=== PATIENT | male | born 1960 | race Caucasian/White ===

== ENCOUNTER 2019-10-19 08:12 | Inpatient (IN) | payer OTHER, MEDICARE, SELFPAY ==
[2019-10-08 08:52] VITALS: BMI 34.9
[2019-10-19] VITALS (20 sets, daily range): BP systolic 96–116; BP diastolic 55–83; PULSE 54–125; RESP 10–18; TEMP 35.8–37; O2SAT 85–98; BMI 34.3
--- NOTE | 2019-10-19 | DI.RAD.S_ITS ---
PROCEDURE: XR LUMBAR SPINE 2-3V INDICATIONS: L5-S1 LAMINECTOMY TECHNIQUE: 2 views of the lumbar spine were acquired. COMPARISON: [facility] [place], CR, XR LUMBAR SPINE 2 OR 3 VIEWS, 09/10/2019, 14:25. [facility] Outside Film, MR, MR LUMBAR SPINE WITHOUT CONTRAST, 01/17/2019, 15:46. FINDINGS: Bones: 5 [id number] vertebrae are present. There is normal bony alignment maintained by transverse pedicle screws and vertical fixation rods spanning the L5-S1 level, with interbody disc cage prosthesis centered just to the right of midline at L5-S1.. No vertebral body compression fractures. No suspicious bony lesions. Soft tissues: Overlying bowel gas pattern is normal. No suspicious soft tissue calcifications. IMPRESSION: Normal alignment after operative fixation at L5-S1. Dictated by: Saman Mederos M.D. on 10/19/2019 at 13:22 Approved by: Saman Mederos M.D. on 10/19/2019 at 13:24
[2019-10-19] MEDS: LACTATED RINGERS 1,000 ML 42 ML IV ×2 (08:34→11:36)
--- NOTE | 2019-10-19 10:04 | PM.PREOP ---
Pre-operative Note Interval Note History & Physical reviewed/Exam performed by Physician: Yes Changes to H&P: No
--- NOTE | 2019-10-19 10:10 | PM.OP.1 ---
Operative Date/Time/Diagnoses Date of procedure: 10/19/19 Time of procedure: 13:11 Pre-op diagnosis: Lumbar stenosis with radiculopathy History of lumbar laminectomy Post-op diagnosis: same Procedure & Clinicians Procedure: L5-S1 TLIF (post/post interbody fusion) with cage L5-S1 revision right-sided laminectomy L5, S1 screws Iliac crest bone graft aspirate Use of microscope Placement of epidural catheter Same procedure as scheduled: Yes Indications: [age] year old male with intractable pain from stenosis. He had failed conservative management and requested operative intervention. Risks and benefits of surgery were discussed and appropriate consents were obtained. Surgeon: Errol Gaffney Drywall Carrier: Karina Pastor Anesthesia Type: General Operative Notes Findings: none Closure Type: primary Specimen(s): none sent Prosthetic devices, grafts, tissues, transplants, or devices: NuVasive MAS Reline screws Globus Rise cage Applied: catheter Estimated Blood Loss (mL): 50 Procedure in detail: The patient was brought to the operating room and intubated on the table. A time-out was performed. They were then rolled over to the well-padded Rex table in the prone position. Preoperative antibiotics were given. The back was prepped and draped in the standard sterile fashion. Using fluoroscopy, a 4 cm longitudinal incision was made to the right of the midline. We used Bovie to come down to and split the lumbodorsal fascia. Using fluoroscopy and monitoring, we then percutaneously placed Jamshidi needles down the pedicles of L5 and S1 on the right side. These were changed out to guidewires and then we tapped and then placed the NuVasive MAS Reline screw shanks. We then opened up the retractors and used Bovie to clear up the posterolateral gutter as well as medially along the lamina to the spinous processes. A bur was used to decorticate the transverse processes. We brought in the microscope. Using a combination of bur and Kerrison rongeurs, a revision right-sided laminectomy was performed. The lamina itself was intact but underneath this there was no ligamentum, only scar tissue from his previous surgery. Most likely he had just had a ligamentum resection with his diskectomy in the past. We worked up cephalad until we could find a clear edge past the scar tissue where there was actually ligamentum and then began working caudally slowly and carefully peeling the scar tissue away from the dura and freeing up the exiting and traversing nerve roots. The S1 nerve root was completely scarred into the disc level and had to be carefully peeled up to be able to free the dura medially. We had to perform a complete facetectomy to free up the exiting L5 root. This laminectomy was separate and distinct from a TLIF approach as this was a revision surgery and we had to do with scar tissue and much more time and complexity to free up the nerve through this. We carefully cleaned up the remainder of the foramen until we could easily retract the exiting root as well as clearing medially below the dura and expose the disc space. We kept clearing back scar until we could mobilize the dura medially. The disc was prepped with bipolar and then an annulotomy was performed. We performed a diskectomy using a combination of paddles, mya, pituitaries, and curettes. We distracted the disc using a paddle and locked the retractor in an open position. We then filled the disc space with Osteocel bone graft. We then placed the globus Rise cage under fluoroscopy and then filled this in with more bone graft. The distraction on the retractor was released to compress down. This completed the posterior interbody fusion portion of the TLIF at L5-S1. We then placed the screw heads, rom, and locked down the set screws. The wound was copiously irrigated. A small stab incision was made over the PSIS. We used a Jamshidi needle to aspirate several mL of bone marrow from the pelvis. This was mixed with the remaining Osteocel and combined with all of the locally harvested bone graft and placed in the posterolateral gutter for the posterior fusion of the TLIF at L5-S1. An epidural catheter was then placed in the spinal canal by carefully depressing the dura and advancing it 6 cm cephalad under the remaining lamina without resistance. The muscle fascia was closed. The catheter was then injected with a solution containing 4 mL of 0.5% Marcaine, 1 mg Stadol, 4 mg Duramorph, and 100 mcg of fentanyl. This was injected without resistance and the catheter was pulled. We then went to the opposite side. Again using fluoroscopy, a 3 cm incision was made and Bovie was used to come down to split the fascia. Using neural monitoring and fluoroscopy, Jamshidi needles were advanced down the pedicles of L5 and S1 on the left side. These were switched over guidewires, tapped, and screws placed. We then placed a rom and locked the set screws on this side. The wound was irrigated. The fascia was closed. Vancomycin powder was placed in the wounds. The superficial and skin were closed. A sterile dressing was placed. The patient was then rolled over extubated and brought to recovery room without complications. Complications: none Post-operative Condition: stable Disposition: PACU Plan for aftercare: Inpatient. Up with PT
[2019-10-19] MEDS: CEFAZOLIN 2 GM/100 ML FROZ.PIGGY IV ×2 (10:50→18:12)
[2019-10-19] MEDS: VANCOMYCIN 1,000 MG VIAL 1000 MG TOP (11:18)
[2019-10-19] MEDS: SODIUM CHLORIDE 0.9% 1,000 ML, GENTAMICIN 80 MG IRR (11:19)
[2019-10-19] MEDS: THROMBIN (RECOMBINANT) 5,000 UNIT VIAL 5000 UNIT TOP (11:19)
[2019-10-19] MEDS: BUPIVACAINE 0.5% (PF) 4 ML, MORPHINE-PF 4 MG, BUTORPHANOL 1 MG, fentaNYL 100 MCG INJ (11:20)
--- NOTE | 2019-10-19 11:27 | SUR.OPER ---
Prone on spine table, head in foam head support, padded chest and pelvic supports, gel pad at knees, lower legs supported by pillows; nipples, genitalia and toes free of pressure, arms secured on foam padded arm boards at <90 degrees abduction. Tape over blanket at thigh secured to table.
[2019-10-19] MEDS: HYDROMORPHONE 2 MG INJ IV ×4 (13:35→13:50)
[2019-10-19] MEDS: hydrOXYzine 50 MG/ML INJ IM (13:35)
[2019-10-19] MEDS: LORazepam 2 MG/ML INJ 0.25 MG IV (13:52)
[2019-10-19] MEDS: LACTATED RINGERS 1,000 ML 125 ML IV ×2 (14:59→23:23)
--- NOTE | 2019-10-19 15:37 | PC.NURSE ---
Received from pacu at 1430 s/p back surgery. Dressing checked and dressing is c/d/i. Bp 115 sys, hr 86. Cont pulse ox placed and sats are 93% on 2L, brief check on ra and sats were down to 88%. Feels a little itchy, pain is in control and he rates it at a zero right now. Spouse at bedside. Report given to Lacey SIERRA
[2019-10-19] MEDS: diphenhydrAMINE 25 MG TABLET PO (17:28)
[2019-10-19] MEDS: HYDROCODONE/ACET 5/325 TABLET 2 TAB PO ×2 (18:24→23:22)
[2019-10-19] MEDS: SENNOSIDES 8.6 MG TABLET 17.2 MG PO (20:59)
[2019-10-19] MEDS: DOCUSATE 100 MG CAPSULE PO (20:59)
[2019-10-19] MEDS: CELECOXIB 200 MG CAPSULE PO (20:59)
[2019-10-19] MEDS: METOPROLOL ER 50 MG TABLET PO (20:59)
[2019-10-19] MEDS: LOSARTAN 50 MG TABLET PO (21:00)
[2019-10-19] MEDS: GABAPENTIN 300 MG CAPSULE PO (21:00)
[2019-10-19] MEDS: ALBUTEROL HFA 60 PUFF/8 GM INH INH (22:23)
[2019-10-19] MEDS: FLUTICASONE/SALMETEROL 500/50 60 PUFF DISKUS INH (22:25)
[2019-10-20] VITALS (9 sets, daily range): BP systolic 91–119; BP diastolic 57–65; PULSE 72–103; RESP 16–20; TEMP 36.3–37.4; O2SAT 94–98
[2019-10-20] MEDS: hydrOXYzine pamoate 25 MG CAPSULE PO (01:21)
[2019-10-20] MEDS: CEFAZOLIN 2 GM/100 ML FROZ.PIGGY IV (03:25)
[2019-10-20] MEDS: HYDROCODONE/ACET 5/325 TABLET 2 TAB PO ×5 (04:31→20:39)
--- NOTE | 2019-10-20 05:21 | PC.NURSE ---
Patient with low urine output, 200 dark turner urine on shift. Encouraged patient to drink more PO fluids. Patient reports that he had stopped consuming liquids early yesterday and has not consumed much fluids on this shift. Will continue with IV fluids and pass to day shift.
[2019-10-20 05:45] LABS: Hematocrit 39.3 % (41-53); Hemoglobin 13.4 g/dL (13.5-17.5)
--- NOTE | 2019-10-20 07:28 | PM.PNPO.1 ---
Subjective Subjective Date Patient Seen: 10/20/19 Time Patient Seen: 07:28 Interval history: He is doing well. Pain 5/10 across back. No leg pain. Exam Vital Signs (past 8 hours): - 10/20/19 04:20 Temperature 99.3 F Pulse Rate 89 Respiratory Rate 16 Blood Pressure 99/61 Pulse Oximetry 95 Oxygen Delivery Method Room Air Oxygen Flow Rate 0 Const Orientation: alert and oriented x3 Back/Spine/Pelvis Other: Mild drainage. 5/5 motor both lower extremities. Objective Labs Result Diagrams: 10/20/19 05:10 Labs: Laboratory Results - last 24 hr 10/20/19 05:10 Hgb 13.4 L Hct 39.3 L Assessment & Plan Post-op Postoperative Procedures: Procedures Operation Date: 10/19/19 10:15 Actual Procedures Side Surgeon p L5S1 laminectomy and instrumented fusion w/ bone graft Errol Gaffney MD He is doing well. Mobilize with physical therapy. Anticipate discharge home tomorrow. Quality VTE Deep Vein Thrombosis/Pulmonary Embolism Present on Admission: No
--- NOTE | 2019-10-20 08:10 | OT.IP.EVAL ---
Current Diagnoses Spinal stenosis, lumbar region with neurogenic claudication (10/19/19) Surgery Performed Operation Date: 10/19/19 10:15 Actual Procedures p L5S1 laminectomy and instrumented fusion w/ bone graft - Errol Gaffney MD Past Medical History (Last Updated 10/08/19 @ 09:15 by Alka Phelps, RN) Afib (Acute) Arthritis (Acute) Asthma (Acute) CAD (coronary artery disease) (Acute) Cardiomyopathy (Acute) Chronic systolic heart failure (Acute) HLD (hyperlipidemia) (Acute) HTN (hypertension) (Acute) Sciatica (Acute) Seasonal allergies (Acute) Surgical History (Last Updated 10/08/19 @ 09:15 by Alka Phelps RN) History of arthroscopy of both knees (Acute) Hx of laminectomy (Acute) Occupational Therapy Inpatient Evaluation/Re-Eval M1 PT/OT-IP Prior Functional Status Start: 10/20/19 09:20 Freq: NEEDED Status: Active Protocol: Document 10/20/19 09:20 CGR (Rec: 10/20/19 09:41 CGR [email or web address]) Medical Review Prior Functional Status Medical History Reviewed Yes Communication Pt is an effective verbal communicator. Mobility and Gait Pt was IND in all functional mobility prior to admit without AD. Activities of Daily Living and IADL's Pt was IND in all ADLs prior to admit. Prior Functional Level (Other details) Pt is retired and lives on a homestead with his . Social History Household Members spouse Living Arrangements House Number of Floors (Floors) One Floor Number of Stairs To Enter/Railing? 2 steps into the house from front without rail, and 1 step down into the garage. Home Environment Standard Height Toilet,Tub/ Shower Home Equipment Front Wheel Walker Employment Status Retired Additional Social History Comment Pt lives with his in a single story house on a homestead. Pt states he is expecting his to stay at home with him for a few days to a week after returning home . M2 OT-IP Current Condition Start: 10/20/19 09:20 Freq: Status: Active Protocol: Document 10/20/19 09:20 CGR (Rec: 10/20/19 09:41 CGR [email or web address]) Occupational Therapy Current Condition Current Condition Evaluation Date 10/20/19 Treatment Diagnosis L5-S1 TLIF revision with screws and bone graft. Diagnosis Onset Date 12/27/19 Post Operative Precautions Lumbar Precautions Log Roll,No Twisting,Limit Bending,Lifting Restriction of 10 lbs,Gait Belt above Incisional Area M3 OT- IP Subjective and Pain Start: 10/20/19 09:20 Freq: Status: Active Protocol: Document 10/20/19 09:20 CGR (Rec: 10/20/19 09:41 CGR [email or web address]) OT- Subjective Occupational Therapy Visit Type Type Initial Evaluation Visit Start Time 07:15 Visit Stop Time 08:10 Total Visit Minutes 55 Occupational Therapy Visit Comments Patient Comments I have a lot of responsibilities at home with all of the animals so I think my will stay home for a week or so. OT Pain Assessment Pain When Pain Assessed At Rest Pain Present Pain Present Pain Reported Location lower back Intensity 5 Scale Used Numeric (1 - 10) Management Techniques Modification of Treatment,Re- positioning M4 OT- IP ADL's Start: 10/20/19 09:20 Freq: Status: Active Protocol: Document 10/20/19 09:20 CGR (Rec: 10/20/19 09:41 CGR [email or web address]) OT RQZ-Lfgb-Fcdorog General Evaluation Self-Feeding Ability Independent Comments OT Self-Feeding Comments Pt left with breakfast tray at end of session. OT ADL-Grooming General Evaluation Grooming Ability Standby Assistance Areas Needing Assistance Face Washing Comments OT Grooming Comments standing at sink OT ADL-Oral Care General Eval Oral Care Ability Standby Assistance Areas of Assistance Brushing Teeth,Retrieving/Set- Up of Items Comments Oral Care Comments Standing at sink OT ADL-Dressing General Eval Lower Body Dressing Ability Standby Assistance Areas Needing Assistance Socks Assistive Devices Dressing Assistive Devices Warp Knitter,Sock Aid Comments OT Dressing Comments Educated on use of hip kit for LB dressing. Pt practiced with provided hip kit. Pt needed multiple attempts with the sock aid but was sucessful once foam piece applied to sock aid and then performed second foot without difficutly . OT ADL-Toileting General Evaluation Toileting Ability Independent Devices Toileting Assistive Devices Grab Bars OT ADL-Bathing Comments OT Bathing Comments Not performed in this session. M5 OT- IP IADL's Start: 10/20/19 09:20 Freq: Status: Active Protocol: Document 10/20/19 09:20 CGR (Rec: 10/20/19 09:41 CGR [email or web address]) OT-Instrumental Activities of Daily Living Deficits IADL Deficits Identified No Deficits Home Safety Awareness Awareness of Need for Assistance at Home Good Awareness Ability to Problem Solve Emergency Able to Problem Solve Situations Medication Management Medication Management No Deficits Identified Money Management Money Management No Deficits Identified Meal Preparation Meal Preparation No Deficits Identified, Caregiver Provides Assist Wax Molder Wax Molder Caregiver Provides Assist Driving Driving Caregiver Provides Assist M6 OT- IP Functional Cognition Start: 10/20/19 09:20 Freq: Status: Active Protocol: Document 10/20/19 09:20 CGR (Rec: 10/20/19 09:41 CGR [email or web address]) Cognitive Factors Limiting Selfcare Function Cognitive Ability Level of Alertness Alert Patient Orientation Name,Age,Birthday,Month,Date, Year,Day of Week,Place, Situation Attention Span Ability Capable of Focused Attention, Capable of Sustained Attention Ability to Follow Commands Able to Follow Multi-Step Commands Memory Description No Deficits Noted Safety Awareness No Deficits Noted Problem Solving Ability No deficits Noted OT- Vision and Hearing OT- Hearing Assessment OT- Hearing Assessment WFL OT- Vision Assessment Visual Acuity Glasses All The Time Visual Attentiveness WFL Occular Pursuits WFL Visual Convergence WFL Visual Aadm WFL Diplopia Absent Visual Spacial Neglect Not Applicable M7 OT- IP Mobility and Balance Start: 10/20/19 09:20 Freq: Status: Active Protocol: Document 10/20/19 09:20 CGR (Rec: 10/20/19 09:41 CGR [email or web address]) OT- Bed Mobility Assessment Rolling Type of Rolling Log Rolling Level of Assistance Minimal Assistance Supine to Sit Supine to Sit Assist Contact Guard Assistance Scooting Scooting to Edge of Bed Standby Assistance OT-Transfer Assessment Sit to and From Stand Sit to and from Stand Contact Guard Assistance Transfers Transfer Ability Contact Guard Assistance Technique Transfer Destination Bed,Chair,Toilet Transfer Technique Stand Step Pivot Devices Transfer Assistive Devices Gait Belt,Front Wheeled Walker OT- Gait Assessment Gait Gait Assistance Required: Contact Guard Assist Assistive Devices Assistive Device Gait Belt,Front Wheeled Walker Comments Gait Ability Comments For mobility around the room. OT- Balance Assessment Sitting Balance and Reactions Static Sitting Balance Ability Good Dynamic Sitting Balance Ability Fair M8 OT- IP Objective Assessments Start: 10/20/19 09:20 Freq: Status: Active Protocol: Document 10/20/19 09:20 CGR (Rec: 10/20/19 09:41 CGR [email or web address]) OT Gross Range of Motion Upper Extremity Range of Motion Assessment Within Functional Limits OT Strength Upper Extremity Strength Assessment Within Functional Limits OT- Coordination Assessment Upper Extremity Finger to Nose Test Within Functional Limits Finger Tapping Test Within Functional Limits OT-Muscle Tone Assessment Muscle Tone WNL Yes OT Sensation Assessment Edema Edema Absent M9 OT- IP Assessment and Plan Start: 10/20/19 09:20 Freq: Status: Active Protocol: Document 10/20/19 09:20 CGR (Rec: 10/20/19 09:41 CGR [email or web address]) OT Summary Assessment and Plan Potential Rehabilitation Potential Excellent Analytic Complexity at Evaluation Low Summary OT Impairments Pain,Balance,Functional Mobility,Dressing,Toileting, Bathing,Toilet Transfers, Shower Transfers Progress Towards Goals Progressing Toward Goals Assessment Summary Pt presents as a low complexity evaluation. Pt is progressing well s/p lumbar sx and will likely be ready for discharge home when cleared by MD. Pt educated on hip kit and provided with hip kit for home use. Pt states understanding of back precautions and need for home equipment. List of home equipment needs left with pt: toilet heightner with arm rests, shower seat, suction cup grab bars for use with tub . Goals Dressing Goal Independent Toileting Goal Independent Bathing Goal Independent Toilet Transfer Goal Independent Shower Transfer Goal Independent Days to Meet Goals 2 Frequency of Treatment Frequency Of Treatment Once a Day Treatment Plan OT Treatment Plan ADL Training,Functional Mobility,Patient/Family Education,Discharge Planning Other Treatment Recommendations and Next Shower and further LB DME Treatment Focus training. Discharge Recommendations OT Discharge Recommendations Home with Assistance Home Equipment Needs Toilet heightner with arm rests, shower seat, suction cup grab bars for use with tub
[2019-10-20] MEDS: DOCUSATE 100 MG CAPSULE PO ×2 (08:20→20:38)
[2019-10-20] MEDS: CELECOXIB 200 MG CAPSULE PO ×2 (08:20→20:38)
--- NOTE | 2019-10-20 08:55 | PT.IIE ---
Current Diagnoses Spinal stenosis, lumbar region with neurogenic claudication (10/19/19) Surgery Performed Operation Date: 10/19/19 10:15 Actual Procedures p L5S1 laminectomy and instrumented fusion w/ bone graft - Errol Gaffney MD Surgical History (Last Updated 10/08/19 @ 09:15 by Alka Phelps RN) History of arthroscopy of both knees (Acute) Hx of laminectomy (Acute) Medical History (Last Updated 10/08/19 @ 09:15 by Alka Phelps RN) Afib (Acute) Arthritis (Acute) Asthma (Acute) CAD (coronary artery disease) (Acute) Cardiomyopathy (Acute) Chronic systolic heart failure (Acute) HLD (hyperlipidemia) (Acute) HTN (hypertension) (Acute) Sciatica (Acute) Seasonal allergies (Acute) Physical Therapy Inpatient Evaluation/Re-Eval M1 PT/OT-IP Prior Functional Status Start: 10/20/19 09:20 Freq: NEEDED Status: Active Protocol: Document 10/20/19 09:20 CGR (Rec: 10/20/19 09:41 CGR [id number]) Medical Review Prior Functional Status Medical History Reviewed Yes Communication Pt is an effective verbal communicator. Mobility and Gait Pt was IND in all functional mobility prior to admit without AD. Activities of Daily Living and IADL's Pt was IND in all ADLs prior to admit. Prior Functional Level (Other details) Pt is retired and lives on a homestead with his . Social History Household Members spouse Living Arrangements House Number of Floors (Floors) One Floor Number of Stairs To Enter/Railing? 2 steps into the house from front without rail, and 1 step down into the garage. Home Environment Standard Height Toilet,Tub/ Shower Home Equipment Front Wheel Walker Employment Status Retired Additional Social History Comment Pt lives with his in a single story house on a homestead. Pt states he is expecting his to stay at home with him for a few days to a week after returning home . M1 PT/OT-IP Prior Functional Status Start: 10/20/19 12:46 Freq: NEEDED Status: Active Protocol: Document 10/20/19 08:55 AB (Rec: 10/20/19 12:57 AB [id number]) Medical Review Prior Functional Status Medical History Reviewed Yes Communication able to make needs known Mobility and Gait pt stated that he is independent with all mobilities and ambulation without AD Activities of Daily Living and IADL's per OT's note: Pt was IND in all ADLs prior to admit. Social History Household Members spouse Living Arrangements House Number of Floors (Floors) One Floor Number of Stairs To Enter/Railing? 2 steps with L rail ascending Home Environment Standard Height Toilet Home Equipment Straight Cane Employment Status Retired Additional Social History Comment pt stated that he has a walker but with not wheels but has skids on the front M2 PT-IP Current Condition Start: 10/20/19 12:46 Freq: NEEDED Status: Active Protocol: Document 10/20/19 08:55 AB (Rec: 10/20/19 12:57 AB [id number]) Physical Therapy Current Condition Current Condition Evaluation Date 10/20/19 Treatment Diagnosis L5S1 TLIF and lami revision; difficulty in walking Onset Date 10/19/19 Precautions Lumbar Precautions Log Roll,No Twisting,Limit Bending,Lifting Restriction of 10 lbs,Gait Belt above Incisional Area M3 PT-IP Subjective Start: 10/20/19 12:46 Freq: NEEDED Status: Active Protocol: Document 10/20/19 08:55 AB (Rec: 10/20/19 12:57 AB [id number]) Subjective Physical Therapy Visit Type Type Initial Evaluation Visit Start Time 08:55 Visit Stop Time 09:32 Total Visit Minutes 37 Number of DIGITAL SALES EXECUTIVE Visits 0 Physical Therapy Visit Comments Patient Comments pt agreeable to do PT Therapy Pain Assessment Pain When Pain Assessed At Rest Pain Present Pain Present Pain Reported Location lower back Intensity 5 Scale Used Numeric (1 - 10) Pain Management Techniques Re-positioning,Timing of Activity with Medications M4 PT-IP Mobility and Gait Start: 10/20/19 12:46 Freq: NEEDED Status: Active Protocol: Document 10/20/19 08:55 AB (Rec: 10/20/19 12:57 AB [id number]) PT-Bed Mobility Assessment Rolling Type of Rolling Log Rolling Supine to Sit Supine to Sit Standby Assistance,1 Person Assistance Sit to Supine Sit to Supine Standby Assistance,1 Person Assistance PT-Transfer Assessment Sit to and From Stand Sit to and from Stand Minimal Assistance,1 Person Assistance,Use of Upper Extremities Equipment Transfer Assistive Device Gait Belt,Front Wheeled Walker Orthotic/Prosthetic Devices or Brace: No Transfers Transfer Destination Chair Transfer Technique ambulated using FWW Transfer Ability Level of Assist Minimal Assistance,1 Person Assistance,Use of Upper Extremities Gait Assessment Gait Gait Assistance Required: Minimum Assistance Distance (Feet) 12 Able to Maintain Weight Bearing Status Yes During Gait Assistive Devices Assistive Device Straight Cane,Front Wheeled Walker Orthotic/Prosthetic Devices or Brace: No Gait Deviations General Gait Pattern Antalgic,Decreased Stride Length,Decreased Feet Clearance Factors Limiting Gait Function Factors Limiting Gait Function Decreased Activity Tolerance, Decreased Strength,Limited Range of Motion,Pain,Poor Balance,Poor Safety Awareness Comments Gait Comments ambulated in room using FWW requiring min A and cues ~ 12 ft. c/o low back feeling tired and weak during ambulation and has to sit down . Agreed to stay up on the chair after ambulation. positioned on chair. call light and table placed within reach. PT-Balance Assessment Sitting Balance and Reactions Static Sitting Balance Ability Good Dynamic Sitting Balance Ability Good Standing Balance and Reactions Static Standing Balance Ability Fair Dynamic Standing Balance Ability Fair Device Used FWW M5 PT-IP Objective Assessments Start: 10/20/19 12:46 Freq: NEEDED Status: Active Protocol: Document 10/20/19 08:55 AB (Rec: 10/20/19 12:57 AB [id number]) Orientation Orientation/Cognition Level of Alertness Alert Orientation Name,Age,Birthday,Date,Day of Week,Place,Situation Language Function Ability No Deficits Noted Safety Awareness Decreased Safety Awareness Memory Description Short Term Impaired Gross Range of Motion Lower Extremity ROM Assessment Within Functional Limits Strength Lower Extremity Strength Assessment Within Functional Limits Coordination Assessment Gross Coordination Gross Coordination WNL Sensation Assessment Sensation Gross Sensation WNL Muscle Tone Muscle Tone WNL Yes M6 PT-IP Treatment Start: 10/20/19 12:46 Freq: NEEDED Status: Active Protocol: Document 10/20/19 08:55 AB (Rec: 10/20/19 12:57 AB [id number]) Physical Therapy Treatment Education Education Provided Precautions,Weight Bearing Status,Post-Op Packet,Safety M7 PT-IP Assessment and Plan Start: 10/20/19 12:46 Freq: NEEDED Status: Active Protocol: Document 10/20/19 08:55 AB (Rec: 10/20/19 12:57 AB [id number]) PT Summary Assessment and Plan Potential Rehabilitation Potential Good Status of Condition at Evaluation Stable Summary Impairments Pain,ROM,Strength,Balance, Coordination,Sensation,Tone, Cognition,Bed Mobility, Transfers,Gait,Activity Tolerance Assessment Summary pt requires min A with transfers and ambulation and plans to go home with spouse to assist him. caregiver training will be conducted when approrpriate as well as stair climbing training. will continue to assess progress. Goals Bed Mobility Goal Independent Transfer Goal Independent,Front Wheeled Walker Gait Goal Independent,Front Wheel Walker Gait Distance 200 Other Goals up/down 2 steps L rail ascending SBA Days to Meet Goals 5 Frequency of Treatment Frequency Of Treatment Twice a Day Treatment Plan Physical Therapy Treatment Plan Bed Mobility Training,Transfer Training,Gait Training, Therapeutic Exercise,Balance Retraining,Post Op Education, Discharge Planning,Hot or Cold Pack,Neuromuscular Re-ed, Coordination Retraining,Manual Therapy Other Recommendations and Next Treatment ambulation, stair climbing, Focus caregiver training Recommendations To Nursing Amount of Assist Needed 1 Person Assist Discharge Recommendations PT Discharge Recommendations Home with Assistance
--- NOTE | 2019-10-20 11:06 | CM.DANOTE ---
DCP/Assessment: Reviewed chart. Patient is a 59yr old male admitted to [facility] for spine surgery which was completed on 10-19-[address] Gaffney. PCP is Dr. aSunders. Primary payor is 1)[employer] 2)Medicare. Met with patient explained CM/SW role. Patient alert and oriented resting in bed at time of visit. Patient hopes to d/c home within the next 24/48hrs. Patient has supportive spouse/Mary and reports that he has all needed DME. Patient plans to do outpatient therapy near his residence when Dr. Gaffney approves. No identified d/c planning needs at this time. P: Anticipate home when patient is medically stable. JENNIFER Combs Discharge Planning/Care Management CM Discharge Assessment Start: 10/20/19 11:02 Freq: Status: Active Protocol: Document 10/20/19 11:03 KJS (Rec: 10/20/19 11:06 KJS [id number]) Discharge Planning Assessment Assigned Code Enforcement Inspector JENNIFER Combs Contact Information Mray Ugalde (spouse) [phone] Advance Directives? No History Provided By Patient,Medical Record Prior Living Arrangements House Household Members spouse Type of transporation used prior to Drives own vehicle admit Independent with ADL's Yes Is patient alert and oriented? Yes Caregiver for Another No DME Already Rented / Owned FWW / Walker,Cane Barriers to Discharge No Discharge Plan Home Transportation Arrangement Family to provide transport Whiteboard Updated in Patient Room with Yes name and ext. # of Code Enforcement Inspector Review Status In Process Next Review Type Continued Stay Review Pre-Anesthesia Assessment Start: 10/08/19 08:52 Freq: Status: Complete Protocol: Document 10/08/19 08:52 CAB (Rec: 10/08/19 09:37 CAB [id number]) Pre-Anesthesia Assessment Patient Information Reviewed Via Phone Assessment Assessment Completed With Patient Diagnostic Results EKG Comment Outside EKG scanned to record, pt states labs completed, not available Primary Care Provider Taurus Saunders Medical Clearance Received Yes Specialist Seen Tennis Net Maker,Orthopedist Comment PCP clearance scanned to record Primary Language Serbian Machine Carton Marker Required No Height 185.42 cm Weight 120.202 kg Body Mass Index (BMI) 34.9 Hearing Ability Normal Visual Impairment No Limitations Visual Assist Glasses Dentition Type Teeth, Natural Present Barriers to Learning None Hx Anesthesia Reactions No Hx Family Anesthesia Reaction No Hx Malignant Hyperthermia No Hx Blood Transfusions No Anesthesia Review Requested No alcohol intake never Smoking Status Never smoker Substance Use Type does not use Pain Present Pain Reported Musculoskeletal Symptoms Abnormal Gait,Back Pain, Difficulty Walking,Muscle Cramps,Muscle Spasms,Muscle Weakness,Neck Pain,Numbness, Tingling History of Falling (Recent or History of No ) Patient is completely paralyzed or No completely immobile Prosthesis or Orthotic Device Cane Mental Status Oriented to own ability Comment Pt is active, works around 2 1 /2 acre property w/o issues Is patient on oxygen? No Does patient have MILLAN/SOB No: Hx of Asthma, CHF Hx Sleep Apnea No Currently Taking a Beta Hema Yes: Metoprolol Can You Climb a Flight of Stairs Without Yes SOB Hx Chest Pain No Hx SOB Yes Hx Syncope or Dizziness No Anti-Coagulant Therapy Yes: Xarelto-Advised to hold 10/15/19 per Cardiology Has a Tennis Net Maker Yes: Dr. Baptiste-visit 09/13/19 Cardiac Testing No Hx Pacemaker/ICD No Pacemaker Rep Required? No Cardiac Clearance Received Yes Comment Cardiac records scanned to chart Diet Type At Home Regular dysphagia No Urinary Catheter Present No Hx Urinary Self Catheterization No Diabetes No Hx Drug Resistant Organism No Presence of External or Internal Medical No Devices Have you traveled outside the [place] in the last 30 days? Marital Status Lives With spouse Prior Living Arrangements House Number of Floors (Floors) One Floor Support System Spouse Patient Discharge Plan Description Return Home Comment Pt advised 1-3 day length of stay per surgeon Feels Safe in Current Environment Yes Been Physically Hurt or Threatened By a No Person in Current Environment Do you have thoughts of harming yourself None or others? Are you currently considering suicide? No Do you have a plan to hurt yourself or No Plan others? Do You Have Any Spiritual Beliefs That No May Affect Your HC Choices? Do You Have Any Cultural Practices That No May Affect Your HC Choices? Comment Sikh Who Can We Speak to About Patient's Care Family, friends Identifying Code for Release of Patient Declines to issue Information Health Care Proxy/Next of Kin Rubia () Health Care Proxy Emergency Contact Name Rubia () Emergency Contact Advance Directives? No Power of Household Appliance Assembler No PAC Instructions Durable medical equipment, Medications to take/avoid, Nasal antibiotic,No ETOH/ petroleum product on skin DOS, NPO,Post-op transportation,Pre -surgical wash,Sensory aids, Sturdy shoes/comfortable clothes,Do not bring valuables and remove jewelry
--- NOTE | 2019-10-20 13:26 | PT.IPTN ---
Current Diagnoses Spinal stenosis, lumbar region with neurogenic claudication (10/19/19) Surgery Performed Operation Date: 10/19/19 10:15 Actual Procedures p L5S1 laminectomy and instrumented fusion w/ bone graft - Errol Gaffney MD Physical Therapy Treatment Note M2 PT-IP Current Condition Start: 10/20/19 12:46 Freq: NEEDED Status: Active Protocol: Document 10/20/19 08:55 AB (Rec: 10/20/19 12:57 AB [id number]) Physical Therapy Current Condition Current Condition Evaluation Date 10/20/19 Treatment Diagnosis L5S1 TLIF and lami revision; difficulty in walking Onset Date 10/19/19 Precautions Lumbar Precautions Log Roll,No Twisting,Limit Bending,Lifting Restriction of 10 lbs,Gait Belt above Incisional Area M3 PT-IP Subjective Start: 10/20/19 12:46 Freq: NEEDED Status: Active Protocol: Document 10/20/19 12:48 LJ (Rec: 10/20/19 13:26 LJ [email or web address]) Subjective Physical Therapy Visit Type Type Treatment Note Visit Start Time 12:48 Visit Stop Time 13:12 Total Visit Minutes 24 Number of DIALYSIS PATIENT CARE TECHNICIAN Visits 1 Physical Therapy Visit Comments Patient Comments Pt in bed willing to get up and walk in hallway Therapy Pain Assessment Pain When Pain Assessed At Rest Pain Present Pain Present Pain Reported M4 PT-IP Mobility and Gait Start: 10/20/19 12:46 Freq: NEEDED Status: Active Protocol: Document 10/20/19 12:48 LJ (Rec: 10/20/19 13:26 LJ [id number]) PT-Bed Mobility Assessment Rolling Type of Rolling Log Rolling Supine to Sit Supine to Sit Standby Assistance,1 Person Assistance Sit to Supine Sit to Supine Standby Assistance,1 Person Assistance Scooting Scooting to Edge of Bed Standby Assistance PT-Transfer Assessment Sit to and From Stand Sit to and from Stand Contact Guard Assistance,Use of Upper Extremities Equipment Transfer Assistive Device Gait Belt,Front Wheeled Walker Orthotic/Prosthetic Devices or Brace: No Transfers Transfer Destination Chair,Toilet Transfer Technique ambulated using FWW Transfer Ability Level of Assist Standby Assistance,Contact Guard Assistance,Use of Upper Extremities Comments Mobility Comments Pt SBA for all bed mobility and transfers. Exercising caution to avoid bending when sitting on toilet and chair Gait Assessment Gait Gait Assistance Required: Standby Assistance,Contact Guard Assist Distance (Feet) 400 Assistive Devices Assistive Device Front Wheeled Walker Orthotic/Prosthetic Devices or Brace: No Gait Deviations General Gait Pattern Decreased Stride Length, Decreased Feet Clearance Factors Limiting Gait Function Factors Limiting Gait Function Decreased Activity Tolerance, Decreased Strength,Limited Range of Motion,Pain,Poor Balance,Poor Safety Awareness Comments Gait Comments Pt ambulated in hallway from room to stairs x2 with normal pac and near normal gait mechanics being steady on lhis feet. No complaint of fatigue or pain with ambulation. Pt returned to room and sat on toilet to void. Stood using rail then ambulated to chair. Stand>sit into chair controlled and within precations. Stair Climbing Assessment Evaluation Level of Assist On Stairs Standby Assistance,Contact Guard Assistance Devices Stair Climbing Assistive Devices Front Wheel Walker Technique/Endurance Stair Climbing Direction Ascend and Descend Stair Climbing Technique Step to Step Number of Steps Climbed 1 Stair Climbing Set # Repetitions (reps) 2 Comments Stair Climbing Comments Pt reports he has one large step on which he can place a FWW to enter the house then will step over the threshold. He was careful and had no difficulty stepping up and down the step. M5 PT-IP Objective Assessments Start: 10/20/19 12:46 Freq: NEEDED Status: Active Protocol: Document 10/20/19 08:55 AB (Rec: 10/20/19 12:57 AB [id number]) Orientation Orientation/Cognition Level of Alertness Alert Orientation Name,Age,Birthday,Date,Day of Week,Place,Situation Language Function Ability No Deficits Noted Safety Awareness Decreased Safety Awareness Memory Description Short Term Impaired Gross Range of Motion Lower Extremity ROM Assessment Within Functional Limits Strength Lower Extremity Strength Assessment Within Functional Limits Coordination Assessment Gross Coordination Gross Coordination WNL Sensation Assessment Sensation Gross Sensation WNL Muscle Tone Muscle Tone WNL Yes M6 PT-IP Treatment Start: 10/20/19 12:46 Freq: NEEDED Status: Active Protocol: Document 10/20/19 12:48 ALDO (Rec: 10/20/19 13:26 LJ [id number]) Physical Therapy Treatment Education Education Provided Precautions,Weight Bearing Status,Post-Op Packet,Safety M7 PT-IP Assessment and Plan Start: 10/20/19 12:46 Freq: NEEDED Status: Active Protocol: Document 10/20/19 12:48 ALDO (Rec: 10/20/19 13:26 LJ [id number]) PT Summary Assessment and Plan Potential Rehabilitation Potential Good Status of Condition at Evaluation Stable Summary Impairments Pain,ROM,Strength,Balance, Coordination,Sensation,Tone, Cognition,Bed Mobility, Transfers,Gait,Activity Tolerance Assessment Summary Pt is CGA-SBA for all moblility and ambulation. His gait was near normal with near normal foot clearance and stride length. No antalgia at this point. Stair climbing was successful. Still need to discuss the type of walker he has at home and determine if it is appropriate for his use. Goals Bed Mobility Goal Independent Transfer Goal Independent,Front Wheeled Walker Gait Goal Independent,Front Wheel Walker Gait Distance 200 Other Goals up/down 2 steps L rail ascending SBA Days to Meet Goals 5 Frequency of Treatment Frequency Of Treatment Twice a Day Treatment Plan Physical Therapy Treatment Plan Bed Mobility Training,Transfer Training,Gait Training, Therapeutic Exercise,Balance Retraining,Post Op Education, Discharge Planning,Hot or Cold Pack,Neuromuscular Re-ed, Coordination Retraining,Manual Therapy Other Recommendations and Next Treatment ambulation, caregiver training Focus , FWW assessment Recommendations To Nursing Amount of Assist Needed 1 Person Assist Discharge Recommendations PT Discharge Recommendations Home with Assistance
[2019-10-20] MEDS: SENNOSIDES 8.6 MG TABLET 17.2 MG PO (20:39)
[2019-10-20] MEDS: LOSARTAN 50 MG TABLET PO (22:04)
[2019-10-20] MEDS: METOPROLOL ER 50 MG TABLET PO (22:04)
[2019-10-20] MEDS: FLUTICASONE/SALMETEROL 500/50 60 PUFF DISKUS INH (22:11)
[2019-10-21] MEDS: hydrOXYzine pamoate 25 MG CAPSULE PO (00:18)
[2019-10-21] MEDS: HYDROCODONE/ACET 5/325 TABLET 2 TAB PO ×3 (00:18→11:33)
[2019-10-21 05:50] VITALS: BP 118/64; PULSE 60; RESP 18; TEMP 36.8; O2SAT 97
[2019-10-21 07:55] VITALS: BP 100/45; PULSE 83; RESP 18; TEMP 37.6; O2SAT 96
--- NOTE | 2019-10-21 08:09 | PC.NURSE ---
Addendum entered by Naye Booker R.N. 10/21/19 11:38: Patient just given 2 vicodin for complaints of 6/7 pain. He is concerned that he has to wait at [facility] for an hour or so to get his vicodin filled. Explained to patient that we do not fax narcotic prescriptions anymore, he was also under the assumption that the hospital would provide him a two supply of hydrocodone. This RN explained to patient that this is what the script is for. He is leaving via wheel chair now and his is going to drive hime home. Dressing to lower back changed and iv taken out. Original Note: Pt just given 2 vicodin for complaints of discomfort to his lower back. Dressing is saturated with ss drainage that is dried. Dressing will be changed before he goes home today. He is moving well, a little weak and now lying back in bed... Denies any nausea or discomfort at this time.
--- NOTE | 2019-10-21 08:54 | PM.PNPO.1 ---
Subjective Subjective Date Patient Seen: 10/21/19 Time Patient Seen: 08:54 Interval history: Patient is status post lumbar fusion. Doing very well this morning. Pain is very well controlled. No complaints overnight. Exam Vital Signs (past 8 hours): - 10/21/19 05:50 10/21/19 07:55 Temperature 98.2 F 99.7 F H Pulse Rate 60 83 Respiratory Rate 18 18 Blood Pressure 118/64 100/45 L Pulse Oximetry 97 96 Oxygen Delivery Method Room Air Oxygen Flow Rate 0 Narrative Exam Narrative: Patient's dressing is clean, dry, intact. Positive dorsiflexion and plantar flexion of the toes and ankles. Nontender to palpation to the bilateral calves. Objective Labs Result Diagrams: 10/20/19 05:10 Assessment & Plan Post-op Postoperative Procedures: Procedures Operation Date: 10/19/19 10:15 Actual Procedures Side Surgeon p L5S1 laminectomy and instrumented fusion w/ bone graft Errol Gaffney MD Postoperative day: 2 Postoperative status: doing well Postoperative plan: discharge Postoperative plan narrative: Patient will be discharged home today. All of his questions are answered to his mainframe analyst Spent With Patient Time with patient: less than 15 minutes Quality VTE Deep Vein Thrombosis/Pulmonary Embolism Present on Admission: No
[2019-10-21] MEDS: DOCUSATE 100 MG CAPSULE PO (09:05)
[2019-10-21] MEDS: CELECOXIB 200 MG CAPSULE PO (09:05)
--- NOTE | 2019-10-21 09:18 | CM.DPC ---
DCP Discharge Home Per Ortho MD, pt is medically stable to d/c home later today after further PT and no identified barriers to discharge. Per PT, pt received his pain medication and eating breakfast and then PT will work with pt on ambulation, stairs, and CG training when spouse bedside. PT will update SW if any concerns arise but pt should be able to d/c home with outpt PT and spouse assist. SW met bedside with pt and explained role and pt finishing up his breakfast and confirms that his is getting ready at home and will be bedside prior to noon and currently pt has no concerns with d/c home and agreeable to therapy this morning. SW updated RN and checked in on pt progress. Plan: Patient to d/c home later today after spouse bedside to participate in CG training and final PT. No SW needs at this time. JENNIFER Woodson
--- NOTE | 2019-10-21 11:20 | PT.IPTN ---
Current Diagnoses Spinal stenosis, lumbar region with neurogenic claudication (10/19/19) Surgery Performed Operation Date: 10/19/19 10:15 Actual Procedures p L5S1 laminectomy and instrumented fusion w/ bone graft - Errol Gaffney MD Physical Therapy Treatment Note M2 PT-IP Current Condition Start: 10/20/19 12:46 Freq: NEEDED Status: Discharge Protocol: Document 10/20/19 08:55 AB (Rec: 10/20/19 12:57 AB [id number]) Physical Therapy Current Condition Current Condition Evaluation Date 10/20/19 Treatment Diagnosis L5S1 TLIF and lami revision; difficulty in walking Onset Date 10/19/19 Precautions Lumbar Precautions Log Roll,No Twisting,Limit Bending,Lifting Restriction of 10 lbs,Gait Belt above Incisional Area M3 PT-IP Subjective Start: 10/20/19 12:46 Freq: NEEDED Status: Discharge Protocol: Document 10/21/19 11:20 CLB (Rec: 10/21/19 11:50 CLB [id number]) Subjective Physical Therapy Visit Type Type Treatment Note Visit Start Time 11:20 Visit Stop Time 11:35 Total Visit Minutes 15 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 Therapy Pain Assessment Pain When Pain Assessed At Rest Pain Present Pain Present Pain Reported Location lower back Intensity 6 Scale Used Numeric (1 - 10) Pain Management Techniques Re-positioning,Timing of Activity with Medications M4 PT-IP Mobility and Gait Start: 10/20/19 12:46 Freq: NEEDED Status: Discharge Protocol: Document 10/21/19 11:20 CLB (Rec: 10/21/19 11:50 CLB [id number]) PT-Bed Mobility Assessment Rolling Type of Rolling Log Rolling Supine to Sit Supine to Sit Standby Assistance,1 Person Assistance Sit to Supine Sit to Supine Standby Assistance,1 Person Assistance Scooting Scooting to Edge of Bed Standby Assistance PT-Transfer Assessment Sit to and From Stand Sit to and from Stand Standby Assistance,Use of Upper Extremities Equipment Transfer Assistive Device Gait Belt,Front Wheeled Walker Orthotic/Prosthetic Devices or Brace: No Transfers Transfer Destination Bed Transfer Technique ambulated using FWW Transfer Ability Level of Assist Standby Assistance,Use of Upper Extremities Comments Mobility Comments Pt is SBA for all bed mobility with good log roll sequencing in and out of bed. Pt uses proper hand placement with sit -stand. Pt recalled 3/3 back precations. Gait Assessment Gait Gait Assistance Required: Standby Assistance Distance (Feet) 300 Assistive Devices Assistive Device Gait Belt,Front Wheeled Walker Orthotic/Prosthetic Devices or Brace: No Gait Deviations General Gait Pattern Decreased Stride Length, Decreased Feet Clearance Factors Limiting Gait Function Factors Limiting Gait Function Decreased Activity Tolerance, Decreased Strength,Limited Range of Motion,Pain Comments Gait Comments Pt ambulated ~300ft requiring SBA, pt has improved foot clearance and step length w/o LOB and good safety awareness. Stair Climbing Assessment Evaluation Level of Assist On Stairs Standby Assistance,Contact Guard Assistance Devices Stair Climbing Assistive Devices Front Wheel Walker Technique/Endurance Stair Climbing Direction Ascend and Descend Stair Climbing Technique Step to Step Number of Steps Climbed 1 Stair Climbing Set # Repetitions (reps) 2 Comments Stair Climbing Comments Pt is SBA-CGA for platform step with FWW and was able to recall proper sequencing from yesterdays training. M5 PT-IP Objective Assessments Start: 10/20/19 12:46 Freq: NEEDED Status: Discharge Protocol: Document 10/20/19 08:55 AB (Rec: 10/20/19 12:57 AB [id number]) Orientation Orientation/Cognition Level of Alertness Alert Orientation Name,Age,Birthday,Date,Day of Week,Place,Situation Language Function Ability No Deficits Noted Safety Awareness Decreased Safety Awareness Memory Description Short Term Impaired Gross Range of Motion Lower Extremity ROM Assessment Within Functional Limits Strength Lower Extremity Strength Assessment Within Functional Limits Coordination Assessment Gross Coordination Gross Coordination WNL Sensation Assessment Sensation Gross Sensation WNL Muscle Tone Muscle Tone WNL Yes M6 PT-IP Treatment Start: 10/20/19 12:46 Freq: NEEDED Status: Discharge Protocol: Document 10/20/19 12:48 LJ (Rec: 10/20/19 13:26 LJ [id number]) Physical Therapy Treatment Education Education Provided Precautions,Weight Bearing Status,Post-Op Packet,Safety M7 PT-IP Assessment and Plan Start: 10/20/19 12:46 Freq: NEEDED Status: Discharge Protocol: Document 10/21/19 11:20 CLB (Rec: 10/21/19 11:50 CLB [id number]) PT Summary Assessment and Plan Summary Progress Towards Goals Progressing Toward Goals Assessment Summary Pt is SBA-CGA for all mobility . Pt has good safety awareness during all transfers and mobility and recalls 3/3 back precautions and demonstrates precautions with mobility. Pt seems able to d/c home with to assist him when medically stable. Left pt in bed with alarm on and all needs within reach, present. Goals Bed Mobility Goal Independent Transfer Goal Independent,Front Wheeled Walker Gait Goal Independent,Front Wheel Walker Gait Distance 200 Other Goals up/down 2 steps L rail ascending SBA Days to Meet Goals 5 Frequency of Treatment Frequency Of Treatment Twice a Day Treatment Plan Physical Therapy Treatment Plan Bed Mobility Training,Transfer Training,Gait Training, Therapeutic Exercise,Balance Retraining,Post Op Education, Discharge Planning,Hot or Cold Pack,Neuromuscular Re-ed, Coordination Retraining,Manual Therapy Other Recommendations and Next Treatment ambulation, caregiver training Focus , FWW assessment Recommendations To Nursing Amount of Assist Needed 1 Person Assist Discharge Recommendations PT Discharge Recommendations Home with Assistance
--- NOTE | 2019-10-26 07:29 | P.DS_ITS ---
History of Present Illness History of Present Illness Date Patient Seen: 10/21/19 Time Patient Seen: 08:54 Chief complaint: [id number] Narrative: [age] year old male with intractable pain from stenosis. He had failed conservative management and requested operative intervention. Risks and benefits of surgery were discussed and appropriate consents were obtained. Discharge Providers Provider Date of admission: 10/19/19 08:12 Discharge Date: 10/21/19 Consults: 10/19/19 14:33 Consult to Occupational Therapy Evaluate & Treat Comment: Physician Instructions: Evaluate and treat Consult to Physical Therapy Evaluate & Treat Comment: Physician Instructions: Evaluate and Treat 10/19/19 15:22 Consult to Dietitian, Adult Routine Comment: Reason For Exam: pt reports doesn't go out into community/homebound Discharge provider: Karina Pastor PA-C Summary Hospital Course Discharge Diagnosis: Hypertension AFIB Asthma Hospital Course: Edgard was admitted for L5-S1 TLIF (post/post interbody fusion) with cage, and L5-S1 revision right-sided laminectomy with Dr. Gaffney. Hospital course was unremarkable. Postop day 2. Patient was ready to discharge home. He is eating and voiding without difficulty or assistance. He mobilized with physical therapy throughout his stay. Pain was well controlled with Fitzwilliam, and Vistaril. Status at Discharge Functional status at discharge: uses cane/walker Exam Vital Signs (past 8 hours): Oxygen Delivery Method Room Air Oxygen Flow Rate 0 Narrative Exam Narrative: See Dr. Cordova progress note Objective Labs Result Diagrams: 10/20/19 05:10 Discharge Plan Discharge Plan Patient Disposition: Home Discharge comment: f/u 1.5 wks may restart Xarelto on POD#5 (10/24/19) Discharge orders & Medications Prescriptions: New hydrocodone-acetaminophen 5-325 mg Tablet 1 tab PO Q4HR PRN (Reason: Pain, Moderate (4-6)) Qty: 20 RF: 0 hydroxyzine pamoate 25 mg Capsule 25 mg PO Q4HR PRN (Reason: spasms) Qty: 10 RF: 0 Continued losartan 50 mg Tablet 50 mg PO QPM RF: 0 metoprolol succinate 50 mg Tablet Extended Release 24 Hr 50 mg PO QPM RF: 0 fluticasone propion-salmeterol [Advair Diskus] 500-50 mcg/dose Blister With Device 1 inh INHALATION QPM PRN (Reason: Shortness Of Breath) RF: 0 albuterol sulfate [ProAir HFA] 90 mcg/actuation Hfa Aerosol Inhaler 1 puff INHALATION BEDTIME PRN (Reason: Shortness Of Breath) RF: 0 Xarelto 20 mg Tablet 20 mg PO QPM RF: 0 Discharge Health Status Multidrug resistant organism: No MDRO Diet/Activity/Treatments Diet: Diet as Tolerated Activity: limited BLT 10 lbs max Skin/Wound/Dressing Care Report to your healthcare provider any signs of infection, such as:: chills, fever, night sweats, increased pain, unusual drainage and unusual redness Dressing: may change dressing and shower POD#5 (Wed) Visit Report/Discharge Packet Instructions: DI for Prescription Opioid Use, DI for Transforaminal Lumbar Interbody Fusion, Hydrocodone/Acetaminophen (By mouth) Stand Alone Forms: Surgery Discharge Discharges patient from system. Discharge Date/Time: 10/21/19 11:42 Quality VTE Deep Vein Thrombosis/Pulmonary Embolism Present on Admission: No
== END 2019-10-21 11:42 | disposition home or self-care (01) | DRG 455 ==
PROVIDERS: Admitting Provider Orthopaedic Surgery; Visit Provider Orthopaedic Surgery
PROC: 0SG30AJ Fusion of Lumbosacral Joint with Interbody Fusion Device, Posterior Approach, Anterior Column, Open Approach (ICD-10-PCS; principal; 2019-10-19 10:15)
DX: M48.062 Spinal stenosis, lumbar region with neurogenic claudication (principal); I48.91 Unspecified atrial fibrillation; J45.909 Unspecified asthma, uncomplicated; I10 Essential (primary) hypertension; Z79.01 Long term (current) use of anticoagulants; M96.1 Postlaminectomy syndrome, not elsewhere classified
CPT/HCPCS: 72100; 76000; 85014; 85018; 94640; 94762; 97116; 97161; 97165; 97530; 97535; C1776; J0330; J0595; J0690; J1100; J1170; J2060; J2250; J2274; J2405; J2704; J3010; J3410

== ENCOUNTER → 2022-01-23 12:05 | Outpatient (CLI) | payer BC, MEDICARE, SELFPAY ==
[2019-10-19 15:13] VITALS: BMI 34.3
--- NOTE | 2022-01-23 | DI.MRI.S_ITS ---
PROCEDURE: MR LUMBAR SPINE WO CON INDICATIONS: LUMBAR STENOSIS TECHNIQUE: Noncontrast sagittal T1 spin echo and T2 fast echo, sagittal STIR, and T2 fast spin echo through the lumbar spine. In cases with scoliosis, additional coronal T2 fast spin echo may be performed. COMPARISON: [facility] Outside Film, MR, MR LUMBAR SPINE WITHOUT CONTRAST, 01/17/2019, 15:46. [facility] [place], RF, LUMBAR SPINE INTERIAMINAR, 12/15/2021, 17:29. [facility] Outside Film, CT, CT LUMBAR SPINE WITHOUT CONTRAST, 05/22/2021, 9:01. [facility] [place], CR, XR LUMBAR SPINE 2 OR 3 VIEWS, 04/28/2021, 9:39. FINDINGS: Image quality: Excellent. Alignment and Curvature: There is normal bony alignment. Bone Marrow: Postsurgical changes compatible with L5-S1 PLIF. Modic type 1 reactive endplate changes noted adjacent to the L3-L4 and L5-S1 discs. Modic type 2 reactive endplate changes noted adjacent to the L1-L2 disc. No acute vertebral body compression fractures. Spinal Cord: Conus medullaris terminates at the L1-2 disc level. Visualized cord demonstrates normal signal and size. Paraspinous Soft Tissues: No paravertebral masses. T12-L1: Loss of disc signal. No central stenosis. No neural foraminal narrowing. No neural compression. L1-L2: Loss of disc signal. No central stenosis. No neural foraminal narrowing. No neural compression. Fissures noted in the posterior annulus. L2-L3: Loss of disc signal. Mild, diffuse disc bulge. No central stenosis. Mild bilateral neural foraminal narrowing. No neural compression. Fissure noted in the posterior annulus. L3-L4: Loss of disc signal. Mild, diffuse disc bulge. No central stenosis. Mild bilateral neural foraminal narrowing. Fissures noted in the posterior and anterior annulus. L4-L5: Loss of disc signal. Mild, diffuse disc bulge. No central stenosis. Moderate bilateral neural foraminal narrowing. No neural compression. L5-S1: Status post fusion. No central stenosis. Mild right and moderate left neural foraminal narrowing. No neural compression. IMPRESSION: 1. Status post L5-S1 PLIF. 2. Multilevel degenerative disc disease. 3. No severe central canal narrowing. 4. No severe neural foraminal narrowing. 5. No neural compression. 6. L1-L2, L2-L3 and L3-L4 disc annulus fissures. Dictated by: Kimmy Guadarrama MD, PhD on 01/25/2022 at 9:37 Approved by: Kimmy Guadarrama MD, PhD on 01/25/2022 at 9:42
== END ==
PROVIDERS: Referring Provider Physical Medicine & Rehabilitation; Visit Provider Physical Medicine & Rehabilitation
DX: M48.062 Spinal stenosis, lumbar region with neurogenic claudication (principal); M51.36 Other intervertebral disc degeneration, lumbar region; Z98.1 Arthrodesis status
CPT/HCPCS: 72148